=== PATIENT | male | born 1970 | race Caucasian/White ===

== ENCOUNTER 2016-08-11 07:23 | Emergency (ER) | payer OTHER ==
[2016-08-11 07:39] VITALS: BP 126/79
--- NOTE | 2016-08-11 08:10 | ED Physician Documentation ---
PD HPI UPPER EXT INJURY - Stated complaint Stated Complaint: RT SHOULDER PX - Chief complaint Chief Complaint: Ext Problem - History obtained from History obtained from: Patient, Family - History of Present Illness Location: Right, Shoulder Type of injury: Other (unknown specific injury) Where injury occurred: Home Timing - onset: How many weeks ago (3) Timing - duration: Weeks (3) Timing - details: Gradual onset, Still present Improved by: Rest, Immobilization Worsened by: Moving, Palpating Associated symptoms: No: Weakness, Numbness, Tingling, Swelling Contributing factors: No: Anticoagulated Similar symptoms before: Diagnosis (bursitits) Recently seen: Not recently seen - Additonal information Additional information: 45 y/o male recently moved to the area and has developed pain in the right shoulder and this has been present for about 3 weeks. He has had this previously with power lifting and he would discontinue for a while and this would improve. He has not had to have injections. He does not have a doctor here. He is able to move the shoulder in a ROM with pain and he can hold it in abduction. He does not know of an injury but he does do some heavy work at work. He has also had a recent prostate infection and he feels this pain started about the time of this infection. Review of Systems Constitutional: denies: Fever Eyes: denies: Decreased vision Ears: denies: Ear pain Nose: denies: Congestion Throat: denies: Sore throat Cardiac: denies: Chest pain / pressure, Palpitations Respiratory: denies: Dyspnea, Cough PD PAST MEDICAL HISTORY - Past Medical History Past Medical History: Yes Cardiovascular: Hypertension Endocrine/Autoimmune: HyPOthyroidism Psych: Depression, Anxiety - Present Medications Home Medications: Ambulatory Orders Medication Instructions Recorded Confirmed HYDROcod/ACETAM 5/325 [[place] 5/325] 1 - 2 ea PO Q6H PRN #15 tablet 08/11/16 - Allergies Allergies/Adverse Reactions: Allergies Allergy/AdvReac Type Severity Reaction Status Date / Time No Known Drug Allergies Allergy Verified 08/11/16 07:35 - Social History Does the pt smoke?: No Smoking Status: Never smoker PD ED PE NORMAL - Vitals Vital signs reviewed: Yes (tachy ) - General General: Alert and oriented X 3, No acute distress, Well developed/nourished - HEENT HEENT: Atraumatic, PERRL, EOMI - Neck Neck: Supple, no meningeal sign - Respiratory Respiratory: No respiratory distress - Derm Derm: Normal color, Warm and dry, No rash - Extremities Extremities: No deformity, No edema. No: Other (There is pain to palpation to the anterior deltoid and to the posterior area. There is unrestricted ROM but with pain and he is able to hold the arm in abduction. Distal N/V is intact. ) - Neuro Neuro: No motor deficit, No sensory deficit - Psych Psych: Normal mood, Normal affect Results - Vitals Vitals: Vital Signs - 24 hr 08/11/16 07:36 Temperature 36.2 C L Heart Rate 114 H Respiratory 18 Rate Blood Pressure 126/79 O2 Saturation 98 - Rads (name of study) right shoulder Radiology: Prelim report reviewed (Impression: 1. No fracture or bony malalignment. 2. Mild acromioclavicular DJD.), EMP read indepedently, See rad report PD MEDICAL DECISION MAKING - ED course Complexity details: reviewed results, re-evaluated patient, considered differential, d/w patient, d/w family ED course: 45 y/o male with right shoulder pain has large deltoid muscles and history of power lifting. He appears to have bursitis and he is given a dose of decadron and placed into a sling. Departure - Departure Disposition: 01 Home, Self Care Clinical Impression: Bursitis Qualifiers: Bursitis location: shoulder Laterality: right Qualified Code(s): M75.51 - Bursitis of right shoulder Condition: Stable Instructions: ED Bursitis Follow-Up: [facility] [Provider Group] Prescriptions: HYDROcod/ACETAM 5/325 [[place] 5/325] 1 - 2 ea PO Q6H PRN #15 tablet PRN Reason: Pain
[2016-08-11] MEDS ORDERED: DEXAMETHASONE 10 MG/ML VIAL PO STA (08:12)
[2016-08-11] MEDS ORDERED: DEXAMETHASONE 10 MG/ML VIAL ONE (08:25)
[2016-08-11] MEDS ORDERED: CHERRY SYRUP 10 ML UDC PO ONE (08:26)
--- NOTE | 2016-08-11 08:31 | XRAY Preliminary Report ---
Exam: XR Shoulder 3 View RT IMPRESSION: 1. No fracture or bony malalignment. 2. Mild acromioclavicular DJD. [facility] SITE ID: [id number]
--- NOTE | 2016-08-11 08:34 | XRAY Report ---
EXAM: RIGHT SHOULDER RADIOGRAPHY EXAM DATE: 08/11/2016 08:25 AM. CLINICAL HISTORY: Right shoulder pain. History of weightlifting. COMPARISON: None. TECHNIQUE: 3 views. FINDINGS: Bones: No fracture or bone lesion. Joints: No subluxation. Mild degenerative changes acromioclavicular joint. Glenohumeral joint is main tained. Soft tissues: No periarticular calcification. IMPRESSION: 1. No fracture or bony malalignment. 2. Mild acromioclavicular DJD. [facility] Referring Provider Line: [phone] SITE ID: [id number]
== END 2016-08-11 08:57 | disposition home or self-care (01) ==
LOC: ED 07:23
DX: M75.51 Bursitis of right shoulder (principal); M19.011 Primary osteoarthritis, right shoulder; I10 Essential (primary) hypertension; E03.9 Hypothyroidism, unspecified
CPT/HCPCS: 73030; 99283; A9270